=== PATIENT | male | born 1970 | race African-American/Black ===

== ENCOUNTER → 2019-05-04 | Outpatient (CLI) | payer MEDICAID ==
[~2019-05-04] MED LIST: ALBUTEROL SULFATE 0.083% NEB 2.5 MG/3 ML AMPUL NEB ONE
--- NOTE | 2019-05-09 11:12 | Pulmonary Function Test ---
Pulmonary Function Test Date of Procedure:: 05/09/19 INDICATION:: Dyspnea Referring Provider: PRESTON GaffneyC Appliance Repairer: Corie Guy [employer], NET WPF DEVELOPER - Report Spirometry: Spirometry: pre-FVC: 2.19 L 50% post-FVC 2.25 L 52% pre-FEV:1 1.37 L 39% post-FEV1; 1.47 L 41% pre-FEV1/FVC % 63 post-FEV1/FVC% 68 predicted 82 [id number]% 0.62 L 17% [id number]% 0.84 L 23% Lung Volume: Total lung capacity: 2.24 L 35% Vital capacity: 2.19 L 50% Inspiratory capacity: 1.43 L FRC N2: 0.81 L 29% ERV: 0.22 L RV: 0.05 L 3% RV/TLC %: 2 predicted 34 Diffusion Capactity: Diffusion Capacity: DLCO; 13.2 50% DLCO/VA; 5.59 134% Impression: There is a severe restrictive ventilatory defect. There is a moderate obstructive ventilatory defect. (Restrictive defect may mask the degree of obstruction) No hyperinflation. No air trapping. Moderate decrease in diff usion capacity.
== END ==
LOC: RT 07:18
PROVIDERS: ATTEND Nurse Practitioner Adult Health
DX: R06.00 Dyspnea, unspecified (principal); Z79.899 Other long term (current) drug therapy
CPT/HCPCS: 94060; 94727; 94729